=== PATIENT | female | born 1950 | race Caucasian/White ===

== ENCOUNTER 2021-02-23 14:25 | Inpatient (IN) | payer MEDICARE, SELFPAY ==
[2021-02-23] VITALS (7 sets, daily range): BP systolic 128–154; BP diastolic 59–70; PULSE 78–85; RESP 15–22; TEMP 37.8; O2SAT 92–97; BMI 28.3
--- NOTE | 2021-02-23 14:43 | XRR_ITS ---
PROCEDURE INFORMATION: Exam: XR Chest Exam date and time: 02/23/2021 2:43 PM Age: 71 years old Clinical indication: Injury or trauma; Fall; Blunt trauma (contusions or hematomas) TECHNIQUE: Imaging protocol: XR of the chest. Views: 1 view. COMPARISON: No relevant prior studies available. FINDINGS: Lungs: Left basilar atelectasis is appreciated. The lungs are otherwise clear. Pleural spaces: Unremarkable. No pleural effusion. No pneumothorax. Heart/Mediastinum: A large hiatal hernia is present Bones/joints: Unremarkable. XR/XR chest 1V portable [id number] IMPRESSION: Large hiatal hernia and left basilar atelectasis.
--- NOTE | 2021-02-23 14:43 | XRR_ITS ---
PROCEDURE INFORMATION: Exam: XR Left Hip Exam date and time: 02/23/2021 2:43 PM Age: 71 years old Clinical indication: Injury or trauma; Fall; Blunt trauma (contusions or hematomas); Left; Hip; Additional info: Pain, with pelvis TECHNIQUE: Imaging protocol: XR Left hip. Views: 2 or 3 views hip with pelvis when performed. COMPARISON: No relevant prior studies available. FINDINGS: Basicervical left femoral neck fracture is noted. Varus angulation of the distal fragment is seen at the fracture site. No hip dislocation. XR/XR hip LT 2-3V wo/w pel* [id number] IMPRESSION: Left basicervical femoral neck fracture.
--- NOTE | 2021-02-23 14:43 | ECG_ITS ---
[facility] Test Date: 2021-02-23 Pat Name: Stephanie Silveira Department: Room: Gender: Female [employer]: : 1950 Requested By: Byron Prado Order Number: [id number] Carmela MD: Hakan Goins M.D. Measurements Intervals [place] Rate: 79 P: 38 HI: 132 QRS: 29 QRSD: 86 T: 16 QT: 378 QTc: 435 Interpretive Statements SINUS RHYTHM No previous ECG available for comparison Electronically Signed On 02-24-2021 16:26:03 CDT by Hakan Goins M.D. [id number]
[2021-02-23 15:01] LABS: Basophils # 0.1 10^3/uL (0.0-0.1); Basophils % 0.7 %; Eosinophils # 0.1 10^3/uL (0.0-0.8); Eosinophils % 1.2 %; Hematocrit 42.3 % (37.0-47.0); Hemoglobin 13.9 g/dL (11.5-15.3); Lymphocytes # 2.5 10^3/uL (0.8-4.8); Lymphocytes % 32.2 %; Mean Corpuscular HGB Conc 32.9 g/dL (30.0-36.0); Mean Corpuscular Hemoglobin 30.7 pg (28.0-34.0); Mean Corpuscular Volume 93.4 fl (81-99); Mean Platelet Volume 10.6 fL (7.4-10.4); Monocytes # 0.5 10^3/uL (0.2-0.9); Monocytes % 7.1 %; Neutrophils # 4.45 10^3/uL (1.8-7.7); Neutrophils % 58.4 %; Nucleated Red Blood Cells % 0 %; Platelet Count 239 10^3/cmm (130-400); Red Blood Count 4.53 10^6/uL (4.1-5.3); Red Cell Distribution Width 13.5 % (12.1-15.1); White Blood Count 7.6 10^3/uL (4.0-10.0)
[2021-02-23 15:21] LABS: INR 0.93 (0.8-1.2)
--- NOTE | 2021-02-23 15:22 | XRR_ITS ---
PROCEDURE INFORMATION: Exam: XR Left Forearm Exam date and time: 02/23/2021 3:22 PM Age: 71 years old Clinical indication: Injury or trauma; Fall; Blunt trauma (contusions or hematomas); Arm, lower; Left TECHNIQUE: Imaging protocol: XR Left forearm. Views: 2 views. COMPARISON: No relevant prior studies available. FINDINGS: Mildly depressed radial neck fracture is noted. No joint dislocation. A small joint effusion is noted. XR/XR forearm LT 2V [id number] IMPRESSION: Radial neck fracture.
--- NOTE | 2021-02-23 15:30 | ED_ITS ---
Documented by User: TALIB Verde 02/23/21 16:32 HPI - Fall General: Chief Complaint: Fall Stated Complaint: LEFT HIP PAIN S/P FALL Time Seen by Provider: 02/23/21 14:35 History of Present Illness: HPI Narrative: Patient arrived via ambulance with complaint of left hip pain after a fall after tripping on a rug today. Was unable to move after that. Also has some left arm pain. Has no history health problems. complaint: fall Onset (ago): minute(s) Fall from: standing Fall witnessed: yes, by family Place fall occurred: home Loss of consciousness: None Prolonged down time: no Context: tripped/slipped Associated symptoms-after fall: Denies abdominal pain, chest pain or headache(s) Review of Systems Const: Denies: fever(s), chills or body aches Eyes: Denies: change in vision or blurry vision ENMT: Denies: throat pain or nasal congestion Card: Denies: chest pain or dyspnea on exertion Resp: Denies: dyspnea, productive cough or non-productive cough GI: Denies: abdominal pain, nausea or vomiting Musc: Reports: extremity pain (Left radius ulna midshaft tender), joint pain (Left hip) and limited range of motion Skin/Breast: Denies: rash Neuro: Denies: headache(s) Psych: Denies: anxiety or depression Michael/Lymph: Denies: easy bruising PFSH ED PFSH: Medical History (Updated 02/23/21 @ 21:31 by Katiuska Trevizo MD, [facility] Hiatal hernia No pertinent family history Surgical History (Updated 02/23/21 @ 16:32 by Manny Harrell MD) No pertinent past surgical history Physical Exam Const: COMMON NORMALS: no acute distress, average body habitus and patient oriented x3 HENMT: COMMON NORMALS: normocephalic HEAD & SCALP: normal to inspection and normocephalic FACE & SINUS: normal facial exam Eye: COMMON NORMALS: conjunctivae normal GENERAL EYE: appearance normal, both eyes and all related structures CONJUNCTIVA: Yes conjunctivae normal Neck/C-Spine: COMMON NORMALS: no JVD Chest: COMMONS NORMALS: normal inspection of the chest Resp: COMMON NORMALS: normal respiratory effort and clear to auscultation bilaterally AUSCULTATION: clear to auscultation bilaterally Cardio: COMMON NORMALS: no JVD, regular rate and regular rhythm RATE: regular rate RHYTHM: regular rhythm GI: COMMON NORMALS: Normal to inspection, nondistended, normoactive bowel sounds present Extremity: LEFT UPPER EXTREMITY: Yes lower arm (Tender midshaft no swelling.) LEFT LOWER EXTREMITY: Yes hip joint (Tender with and rotation foot and shortening of the leg) OTHER: Good distal pulses both extremities neurovascul ar status intact. Neuro: COMMON NORMALS: patient oriented x3 Course Vital Signs: Vital signs: Vital Signs Temperature 100.1 F H 02/23/21 19:51 Pulse Rate 85 02/23/21 19:51 Respiratory Rate 17 02/23/21 19:51 Blood Pressure 128/70 02/23/21 19:51 Pulse Oximetry 92 02/23/21 19:51 MDM - Fall MDM Narrative: Medical decision making narrative: I texted with Dr. Reyes he gladly accepts the patient informed of the femoral neck fracture and the left radial arm fracture. Lab Data: Labs: Lab Results 02/23/21 02/23/21 02/23/21 Range/Units 13:33 13:33 13:33 WBC 7.6 (4.0-10.0) 10^3/ uL RBC 4.53 (4.1-5.3) 10^6/u L Hgb 13.9 (11.5-15.3) g/dL Hct 42.3 (37.0-47.0) % MCV 93.4 (81-99) fl MCH 30.7 (28.0-34.0) pg MCHC 32.9 (30.0-36.0) g/dL RDW 13.5 (12.1-15.1) % Plt Count 239 (130-400) 10^3/c mm MPV 10.6 H (7.4-10.4) fL Neut % (Auto) 58.4 % Lymph % (Auto) 32.2 % [place] % (Auto) 7.1 % Eos % (Auto) 1.2 % Baso % (Auto) 0.7 % Neut # (Auto) 4.45 (1.8-7.7) 10^3/u L Lymph # (Auto) 2.5 (0.8-4.8) 10^3/u L [place] # (Auto) 0.5 (0.2-0.9) 10^3/u L Eos # (Auto) 0.1 (0.0-0.8) 10^3/u L Baso # (Auto) 0.1 (0.0-0.1) 10^3/u L Nucleated RBC % (a uto) 0 % Nucleated RBCs # 0.0 /100WBC PT 12.80 (12.1-14.9) SECO NDS INR 0.93 (0.8-1.2) Sodium 137 (136-145) mmol/L Potassium 3.8 (3.5-5.1) mmol/L Chloride 102 (98-107) mmol/L Carbon Dioxide 22 (22-29) mmol/L Anion Gap 16.8 (5-19) BUN 17 (8-23) mg/dL Creatinine 0.7 (0.5-0.9) mg/dL GFR Calculation Not Reportable Glucose 117 H (65-115) mg/dL Calculated Osmolal ity 287 (285-295) mOsm/k g Calcium 9.2 (8.5-10.5) mg/dL Total Bilirubin 0.2 (0.15-1.2) mg/dL AST 21 (0-32) U/L ALT 12 (0-33) U/L Alkaline Phosphata se 69 (35-105) IU/L Total Protein 7.3 (6.6-8.7) g/dL Albumin 4.3 (3.5-5.2) g/dL Globulin 3.0 (1.3-4.6) g/dL Urine Color (Yellow) Urine Appearance (CLEAR) Urine pH (5-7) Ur Specific Gravit y (1.005-1.030) Urine Protein (Negative) Urine Glucose (UA) (Normal) Urine Ketones (Negative) Urine Blood (Negative) Urine Nitrate (Negative) Urine Bilirubin (Negative) Urine Urobilinogen (Negative) mg/dL Ur Leukocyte Evelyn ase (Negative) 02/23/21 Range/Units 15:47 WBC (4.0-10.0) 10^3/ uL RBC (4.1-5.3) 10^6/u L Hgb (11.5-15.3) g/dL Hct (37.0-47.0) % MCV (81-99) fl MCH (28.0-34.0) pg MCHC (30.0-36.0) g/dL RDW (12.1-15.1) % Plt Count (130-400) 10^3/c mm MPV (7.4-10.4) fL Neut % (Auto) % Lymph % (Auto) % [place] % (Auto) % Eos % (Auto) % Baso % (Auto) % Neut # (Auto) (1.8-7.7) 10^3/u L Lymph # (Auto) (0.8-4.8) 10^3/u L [place] # (Auto) (0.2-0.9) 10^3/u L Eos # (Auto) (0.0-0.8) 10^3/u L Baso # (Auto) (0.0-0.1) 10^3/u L Nucleated RBC % (a uto) % Nucleated RBCs # /100WBC PT (12.1-14.9) SECO NDS INR (0.8-1.2) Sodium (136-145) mmol/L Potassium (3.5-5.1) mmol/L Chloride (98-107) mmol/L Carbon Dioxide (22-29) mmol/L Anion Gap (5-19) BUN (8-23) mg/dL Creatinine (0.5-0.9) mg/dL GFR Calculation Glucose (65-115) mg/dL Calculated Osmolal ity (285-295) mOsm/k g Calcium (8.5-10.5) mg/dL Total Bilirubin (0.15-1.2) mg/dL AST (0-32) U/L ALT (0-33) U/L Alkaline Phosphata se (35-105) IU/L Total Protein (6.6-8.7) g/dL Albumin (3.5-5.2) g/dL Globulin (1.3-4.6) g/dL Urine Color Yellow (Yellow) Urine Appearance Clear (CLEAR) Urine pH 5 (5-7) Ur Specific Gravit y 1.020 (1.005-1.030) Urine Protein Neg (Negative) Urine Glucose (UA) Norm (Normal) Urine Ketones 1+ H (Negative) Urine Blood Neg (Negative) Urine Nitrate Negative (Negative) Urine Bilirubin Neg (Negative) Urine Urobilinogen Norm (Negative) mg/dL Ur Leukocyte Evelyn ase Negative (Negative) Discharge Plan Discharge Patient Disposition: Admitted As Inpatient Admit Provider: Manny Harrell Clinical Impression: Fracture of femoral neck, left, Fracture of radial neck, left, closed Condition: Stable Sign Out Sign Out Data: Patient Sign Out occurred on 02/23/21 at 16:09. Patient's care was discussed, and care was transferred from to Katiuska Trevizo MD, [facility] Coding Level of Care Code ED Dress Marker for Chg Fwd Exam Comprehensive Documented by User: Katiuska Trevizo MD, ARIANNE 02/23/21 21:31 HPI - Fall General: Chief Complaint: Fall Stated Complaint: LEFT HIP PAIN S/P FALL Time Seen by Provider: 02/23/21 14:35 PFSH ED PFSH: Medical History (Updated 02/23/21 @ 21:31 by Katiuska Trevizo MD, [facility] Hiatal hernia No pertinent family history Surgical History (Updated 02/23/21 @ 16:32 by Manny Harrell MD) No pertinent past surgical history Course Vital Signs: Vital signs: Vital Signs Temperature 100.1 F H 02/23/21 19:51 Pulse Rate 85 02/23/21 19:51 Respiratory Rate 17 02/23/21 19:51 Blood Pressure 128/70 02/23/21 19:51 Pulse Oximetry 92 02/23/21 19:51 MDM - Fall MDM Narrative: Medical decision making narrative: 71-year-old female patient who had a fall today and sustained a left hip fracture. Please see the nurse practitioner's note for complete history and physical examination. Patient sustained a left hip fracture and is here to be evaluated. She is admitted to the hospital for further evaluation and management and will be taken to the OR tomorrow by the orthopedic surgeon. Medical Records: Attestation: I reviewed the patient's medical records. Lab Data: Attestation: I reviewed the patient's lab results. Labs: Lab Results 02/23/21 02/23/21 02/23/21 Range/Units 13:33 13:33 13:33 WBC 7.6 (4.0-10.0) 10^3/ uL RBC 4.53 (4.1-5.3) 10^6/u L Hgb 13.9 (11.5-15.3) g/dL Hct 42.3 (37.0-47.0) % MCV 93.4 (81-99) fl MCH 30.7 (28.0-34.0) pg MCHC 32.9 (30.0-36.0) g/dL RDW 13.5 (12.1-15.1) % Plt Count 239 (130-400) 10^3/c mm MPV 10.6 H (7.4-10.4) fL Neut % (Auto) 58.4 % Lymph % (Auto) 32.2 % [place] % (Auto) 7.1 % Eos % (Auto) 1.2 % Baso % (Auto) 0.7 % Neut # (Auto) 4.45 (1.8-7.7) 10^3/u L Lymph # (Auto) 2.5 (0.8-4.8) 10^3/u L [place] # (Auto) 0.5 (0.2-0.9) 10^3/u L Eos # (Auto) 0.1 (0.0-0.8) 10^3/u L Baso # (Auto) 0.1 (0.0-0.1) 10^3/u L Nucleated RBC % (a uto) 0 % Nucleated RBCs # 0.0 /100WBC PT 12.80 (12.1-14.9) SECO NDS INR 0.93 (0.8-1.2) Sodium 137 (136-145) mmol/L Potassium 3.8 (3.5-5.1) mmol/L Chloride 102 (98-107) mmol/L Carbon Dioxide 22 (22-29) mmol/L Anion Gap 16.8 (5-19) BUN 17 (8-23) mg/dL Creatinine 0.7 (0.5-0.9) mg/dL GFR Calculation Not Reportable Glucose 117 H (65-115) mg/dL Calculated Osmolal ity 287 (285-295) mOsm/k g Calcium 9.2 (8.5-10.5) mg/dL Total Bilirubin 0.2 (0.15-1.2) mg/dL AST 21 (0-32) U/L ALT 12 (0-33) U/L Alkaline Phosphata se 69 (35-105) IU/L Total Protein 7.3 (6.6-8.7) g/dL Albumin 4.3 (3.5-5.2) g/dL Globulin 3.0 (1.3-4.6) g/dL Urine Color (Yellow) Urine Appearance (CLEAR) Urine pH (5-7) Ur Specific Gravit y (1.005-1.030) Urine Protein (Negative) Urine Glucose (UA) (Normal) Urine Ketones (Negative) Urine Blood (Negative) Urine Nitrate (Negative) Urine Bilirubin (Negative) Urine Urobilinogen (Negative) mg/dL Ur Leukocyte Evelyn ase (Negative) 02/23/21 Range/Units 15:47 WBC (4.0-10.0) 10^3/ uL RBC (4.1-5.3) 10^6/u L Hgb (11.5-15.3) g/dL Hct (37.0-47.0) % MCV (81-99) fl MCH (28.0-34.0) pg MCHC (30.0-36.0) g/dL RDW (12.1-15.1) % Plt Count (130-400) 10^3/c mm MPV (7.4-10.4) fL Neut % (Auto) % Lymph % (Auto) % [place] % (Auto) % Eos % (Auto) % Baso % (Auto) % Neut # (Auto) (1.8-7.7) 10^3/u L Lymph # (Auto) (0.8-4.8) 10^3/u L [place] # (Auto) (0.2-0.9) 10^3/u L Eos # (Auto) (0.0-0.8) 10^3/u L Baso # (Auto) (0.0-0.1) 10^3/u L Nucleated RBC % (a uto) % Nucleated RBCs # /100WBC PT (12.1-14.9) SECO NDS INR (0.8-1.2) Sodium (136-145) mmol/L Potassium (3.5-5.1) mmol/L Chloride (98-107) mmol/L Carbon Dioxide (22-29) mmol/L Anion Gap (5-19) BUN (8-23) mg/dL Creatinine (0.5-0.9) mg/dL GFR Calculation Glucose (65-115) mg/dL Calculated Osmolal ity (285-295) mOsm/k g Calcium (8.5-10.5) mg/dL Total Bilirubin (0.15-1.2) mg/dL AST (0-32) U/L ALT (0-33) U/L Alkaline Phosphata se (35-105) IU/L Total Protein (6.6-8.7) g/dL Albumin (3.5-5.2) g/dL Globulin (1.3-4.6) g/dL Urine Color Yellow (Yellow) Urine Appearance Clear (CLEAR) Urine pH 5 (5-7) Ur Specific Gravit y 1.020 (1.005-1.030) Urine Protein Neg (Negative) Urine Glucose (UA) Norm (Normal) Urine Ketones 1+ H (Negative) Urine Blood Neg (Negative) Urine Nitrate Negative (Negative) Urine Bilirubin Neg (Negative) Urine Urobilinogen Norm (Negative) mg/dL Ur Leukocyte Evelyn ase Negative (Negative) Imaging Data^: Xray Ortho: Attestation: I personally reviewed and interpreted this imaging study as follows: Radiologist's impression: [address] [id number] ReportSigned Patient: Dominick Silveira #: [id number]: 8Acct#:[id number]/Sex: 71 / FADM Date: 02/23/21Loc: ERRoom/Bed:Attending Dr: Ordering Provider/Ordering MD: Sunil Prado , [facility] Date of Service: 02/23/21 Procedure(s): XR forearm LT 2V [id number] Accession Number(s): [id number] Report Number: [id number] PROCEDURE INFORMATION: Exam: XR Left Forearm Exam date and time: 02/23/2021 3:22 PM Age: 71 years old Clinical indication: Injury or trauma; Fall; Blunt trauma (contusions or hematomas); Arm, lower; Left TECHNIQUE: Imaging protocol: XR Left forearm. Views: 2 views. COMPARISON: No relevant prior studies available. FINDINGS: Mildly depressed radial neck fracture is noted. No joint dislocation. A small joint effusion is noted. XR/XR forearm LT 2V [id number] IMPRESSION: Radial neck fracture. Dictated By:Ortega Blas MDSigned By:Ortega Blas MDSigned Date/Time:02/23/21 1558DD/ [address] [id number] ReportSigned Patient: Dominick Silveira #: [id number]: [id number]#:[id number] Age/Sex: 71 / FADM Date: 02/23/21Loc: ERRoom/Bed:Attending Dr: Ordering Provider/Ordering MD: Sunil Prado Sr, [facility] Date of Service: 02/23/21 Procedure(s): XR hip LT 2-3V wo/w pel* [id number] Accession Number(s): [id number] Report Number: [id number] PROCEDURE INFORMATION: Exam: XR Left Hip Exam date and time: 02/23/2021 2:43 PM Age: 71 years old Clinical indication: Injury or trauma; Fall; Blunt trauma (contusions or hematomas); Left; Hip; Additional info: Pain, with pelvis TECHNIQUE: Imaging protocol: XR Left hip. Views: 2 or 3 views hip with pelvis when performed. COMPARISON: No relevant prior studies available. FINDINGS: Basicervical left femoral neck fracture is noted. Varus angulation of the distal fragment is seen at the fracture site. No hip dislocation. XR/XR hip LT 2-3V wo/w pel* [id number] IMPRESSION: Left basicervical femoral neck fracture. Dictated By:Ortega Blas MDSigned By:Ortega Blas MDSigned Date/Time:02/23/21 1555DD/ 1554 CXR: Attestation: I personally reviewed and interpreted this imaging study as follows: Radiologist's impression: [id number] [facility], [place] [address]PMrp ReportSigned Patient: Dominick Silveira #: [id number]: [id number]#:[id number]/Sex: 71 / FADM Date: 02/23/21Loc: ERRoom/Bed:A ttending Dr: Ordering Provider/Ordering MD: Sunil Prado Sr, [facility] Date of Service: 02/23/21 Procedure(s): XR chest 1V portable [id number] Accession Number(s): [id number] Report Number: [id number] PROCEDURE INFORMATION: Exam: XR Chest Exam date and time: 02/23/2021 2:43 PM Age: 71 years old Clinical indication: Injury or trauma; Fall; Blunt trauma (contusions or hematomas) TECHNIQUE: Imaging protocol: XR of the chest. Views: 1 view. COMPARISON: No relevant prior studies available. FINDINGS: Lungs: Left basilar atelectasis is appreciated. The lungs are otherwise clear. Pleural spaces: Unremarkable. No pleural effusion. No pneumothorax. Heart/Mediastinum: A large hiatal hernia is present Bones/joints: Unremarkable. XR/XR chest 1V portable [id number] IMPRESSION: Large hiatal hernia and left basilar atelectasis. Dictated By:Ortega Blas MDSigned By:Ortega Blas MDSigned Date/Time:02/23/21 1556DD/ 1554 Discharge Plan Discharge Patient Disposition: Admitted As Inpatient Admit Provider: Manny Harrell Clinical Impression: Fracture of femoral neck, left, Fracture of radial neck, left, closed Condition: Stable Sign Out Sign Out Data: Patient Sign Out occurred on 02/23/21 at 16:09. Patient's care was discussed, and care was transferred from to Katiuska Trevizo MD, [facility] Coding Level of Care Code ED Dress Marker for Chg Fwd Exam Comprehensive
[2021-02-23 15:31] LABS: Alanine Aminotransferase 12 U/L (0-33); Albumin Level 4.3 g/dL (3.5-5.2); Alkaline Phosphatase 69 IU/L (35-105); Anion Gap 16.8 (5-19); Aspartate Amino Transferase 21 U/L (0-32); Blood Urea Nitrogen 17 mg/dL (8-23); Calcium 9.2 mg/dL (8.5-10.5); Carbon Dioxide 22 mmol/L (22-29); Chloride 102 mmol/L (98-107); Glucose 117 mg/dL (65-115); Osmolality Calculated 287 mOsm/kg (285-295); Potassium 3.8 mmol/L (3.5-5.1); Sodium 137 mmol/L (136-145); Total Bilirubin 0.2 mg/dL (0.15-1.2); Total Protein 7.3 g/dL (6.6-8.7)
[2021-02-23] MEDS: morphine 4 mg/mL SDV 1 mL IVP (15:34)
[2021-02-23] MEDS: sodium chloride 0.9% 500 ML IV (15:35)
[2021-02-23] MEDS: ondansetron 2 mg/ML SDV 2 mL 4 MG IVP (15:35)
[2021-02-23 16:09] LABS: Add Urine Microscopic? NO; Charge for UA Resulting for Rev
[2021-02-23 16:18] LABS: Urine Color Yellow (Yellow)
[2021-02-23 16:19] LABS: Bilirubin Urine Neg (Negative); Blood Urine Neg (Negative); Glucose Urine UA Norm (Normal); Ketones Urine 1+ (Negative); Leukocyte Esterase Urine Negative (Negative); Nitrate Urine Negative (Negative); Protein Urine Neg (Negative); Urine Appearance Clear (CLEAR); Urobilinogen Urine Norm (Negative); pH Urine 5 (5-7)
--- NOTE | 2021-02-23 16:23 | P.HP_ITS ---
Providers/Chief Complaint Chief Complaint: LEFT HIP PAIN S/P FALL History of Present Illness 71-year-old female with no significant past medical history presented to the hospital after she fell. Apparently patient had tripped over a rug. No symptoms prior to fall.Upon arrival to emergency room patients laboratory workup showed a WBC of 7.6, hemoglobin of 13.9, hematocrit 42.3 and platelet count of 239. INR of 0.93. Sodium 137, potassium 3.8, chloride 102, bicarb 22, BUN 17 and creatinine of 0.7. LFTs were within normal limits. Glucose 117. Urinalysis did not show any evidence of acute infection.Imaging studies included a large hiatal hernia with left basilar atelectasis.Hip x-ray showed evidence of left basicervical neck fracture. LT forearm xray showed left radial neck fr acture. Orthopedic surgery was consulted. Medicine was asked to complete H&P. Review of Systems General: Reports: 10 or more systems reviewed and unremarkable except in HPI and below Medications/Allergies Home Medications Medication Instructions Recorded Confirmed Last Taken Type xfbxo-b-fsdzllvkhdddf [Beano] 150 unit PO TIDWM 02/23/21 02/23/21 02/22/21 History aspirin 81 mg PO DAILY 02/23/21 02/23/21 02/22/21 History calcium 100 mg PO DAILY 02/23/21 02/23/21 02/22/21 History cholecalciferol (vitamin D3) 25 mcg PO DAILY 02/23/21 02/23/21 02/22/21 History [Vitamin D3] cyanocobalamin (vitamin B-12) 1,000 mcg PO DAILY 02/23/21 02/23/21 02/22/21 History [Vitamin B-12] flaxseed 1,000 mg PO DAILY 02/23/21 02/23/21 02/22/21 History lactase 4,500 unit PO TIDWM 02/23/21 02/23/21 02/22/21 History Allergies Allergy/AdvReac Type Severity Reaction Status Date / Time No Known Allergies Allergy Unverified 02/23/21 16:43 PFSH Acute PFSH: Medical History (Updated 02/23/21 @ 16:33 by Manny Harrell MD) Hiatal hernia No pertinent family history Surgical History (Updated 02/23/21 @ 16:32 by Manny Harrell MD) No pertinent past surgical history Vitals/I&O/Wt Last Vital Signs Pulse 78 02/23/21 14:41 Resp 16 02/23/21 15:34 BP 154/66 02/23/21 14:41 Pulse Ox 95 02/23/21 14:41 Weight last 48 hrs Weight 76.204 kg Physical Exam Narrative: EXAM NARRATIVE: General-alert awake and oriented x3 no apparent distress HEENT grossly unremarkable CVS -regular rate rhythm Chest -nonlabored respiration Abdomen-soft nontender nondistended Extremities- decreased mobility due to pain in left upper and lower extremity. Urinary Catheter Management^: Stewart: Cath Placed During This Visit: yes Urinary Catheter Date of Insertion: 02/23/21 Urinary Catheter Time of Insertion: 15:49 Data : 02/23/21 13:33 02/23/21 13:33 A&P Assessment and plan (1) Fracture of femoral neck, left: Status: Acute (2) Fracture of radial neck, left, closed: Status: Acute Additional A&P Information Mechanical Fall with Left femoral / Radial neck fracture Labs stable Pain control Further plan per orthopedic surgery Large Hiatal Hernia Protonix 40 mg PO daily DVT ppx Per orthopedic surgery Attestations Medical Necessity Statement*: Require a 2 midnight stayIn hospital for evaluation treatment ofMechanical fall with subsequent femoral neck and radial neck fracture. Time Spent in Patient Care: Greater than 35 minutes (>than 50% of time spent in counselling and/or direct pt care on unit) . Coding Level of Care Code Acute Court Bailiff for Jair Fwd Diagnoses Fracture of femoral neck, left S72.002A Fracture of radial neck, left, closed S52.132A
[2021-02-23] MEDS: morphine 4 mg/mL SDV 1 mL 2 MG IVP ×2 (18:12→22:58)
[2021-02-24] VITALS (25 sets, daily range): BP systolic 104–144; BP diastolic 57–75; PULSE 73–107; RESP 16–26; TEMP 36.4–38.6; O2SAT 91–96
--- NOTE | 2021-02-24 | XR_ITS ---
WS: [id number] C-ARM RADIOGRAPHS LEFT HIP; 5 IMAGES HISTORY: SHADE PICS COMPARISON: None available. Intraoperative screw fixation and long intramedullary femoral lance placement. LEFT hip fracture in goo d position alignment. XR/XR hip LT 1V wo/w pel [id number] IMPRESSION: Intraoperative fixation LEFT hip fracture now in good position.
--- NOTE | 2021-02-24 | SCC_ITS ---
Procedure Done: Open reduction internal fixation left hip with intramedullary device 68.9 seconds of fluoroscopic guidance, for a cumulative dose of 4.60 mGy, was provided to Dr. Reyes by the radiology department. C-arm images of the LEFT hip were saved for the patient's permanent record. [facility]
[2021-02-24] MEDS: lanolin oint 7 gm 1 APPLIC TOPICAL (01:26)
[2021-02-24] MEDS: morphine 4 mg/mL SDV 1 mL 2 MG IVP (03:38)
[2021-02-24] MEDS: sodium chloride 0.9% 1,000 ML 30 ML IV (05:59)
[2021-02-24 07:44] LABS: Basophils % 0.2 %; Eosinophils % 0.4 %; Hemoglobin 12.3 g/dL (11.5-15.3); Lymphocytes # 1.3 10^3/uL (0.8-4.8); Lymphocytes % 15.4 %; Mean Corpuscular HGB Conc 32.4 g/dL (30.0-36.0); Mean Corpuscular Hemoglobin 30.3 pg (28.0-34.0); Mean Corpuscular Volume 93.6 fl (81-99); Mean Platelet Volume 10.4 fL (7.4-10.4); Monocytes # 0.8 10^3/uL (0.2-0.9); Neutrophils # 5.99 10^3/uL (1.8-7.7); Neutrophils % 73.6 %; Nucleated Red Blood Cells % 0 %; Platelet Count 170 10^3/cmm (130-400); Red Blood Count 4.06 10^6/uL (4.1-5.3); Red Cell Distribution Width 13.4 % (12.1-15.1); White Blood Count 8.1 10^3/uL (4.0-10.0)
--- NOTE | 2021-02-24 08:00 | PC.NURSE ---
patient in preop
--- NOTE | 2021-02-24 08:02 | ANES.PREANE2 ---
Pre-Anesthetic Assessment Pre-Anesthetic Assessment: Height/Weight: Height 1.64 m Weight 76.204 kg Temp Pulse Resp BP Pulse Ox 101.5 F H 90 18 143/67 94 02/24/21 07:49 02/24/21 07:49 02/24/21 07:49 02/24/21 07:49 02/24/21 07:49 Proposed Procedure: Operation Date: 02/24/21 06:55 Proposed Procedures p Trochanteric Femoral Nail(Left) - Pancho Reyes MD Was Beta Catrina taken within 24 hours: N/A Was Clonidine taken within 24 hours: N/A Last intake: Intake Last Liquid Date 02/23/21 Last Liquid Time 23:59 Last Solid Date 02/23/21 Last Solid Time 11:30 Social: Social History: No alcohol and No tobacco Exam: Pre-Anes Outpt Exam: alert, oriented x 3, clear to auscultation bilaterally and regular rate & rhythm Airway: Submandibular: WNL Cervical ROM: WNL MP: 2 Dentition: Full History/ROS: No significant history except as noted Musc/skel: Musc/skel: OA/DJD Anesthetic Plan: ASA status: 2 Anesthesia: Regional (specify below) (SAB) Risk of > 500 ml blood loss (7ml/kg in children): Yes, adequate IV access and fluids planned Meds/Allergies Current Medications: Current Medications Generic Name Dose Route Start Last Admin Trade Name Freq PRN Reason Stop Dose Admin Sodium Chloride 1,000 mls @ 30 ml s/hr 02/24/21 05:15 02/24/21 05:59 Sodium Chloride 0.9% IV 30 mls/hr .Q24H NIK Administration Lanolin 1 applic 02/24/21 00:49 02/24/21 01:26 Lanolin Oint 7 G m TOPICAL 1 applic PRN PRN Administration DRYNESS Morphine Sulfate 2 mg 02/23/21 16:21 02/24/21 03:38 Morphine 4 Mg/Ml Sdv 1 Ml IVP 2 mg Q4H PRN Administration SEVERE PAIN PFSH Anesthesia PFSH: Medical History (Updated 02/23/21 @ 21:31 [place] Katiuska Tre[place]izo [place] [facility] [place] [facility] [place] Hiatal her[place] No pertinent family history Surgical History (Updated 02/23/21 @ 16:32 by Manny Harrell MD) No pertinent past surgical history Data Anesthesia CBC & Chem 7: 02/24/21 06:35 02/23/21 13:33 Other Labs: Laboratory Results - last 48 hr 02/23/21 02/23/21 02/23/21 13:33 13:33 13:33 WBC 7.6 RBC 4.53 Hgb 13.9 Hct 42.3 MCV 93.4 MCH 30.7 MCHC 32.9 RDW 13.5 Plt Count 239 MPV 10.6 H Neut % (Auto) 58.4 Lymph % (Auto) 32.2 Desha % (Auto) 7.1 Eos % (Auto) 1.2 Baso % (Auto) 0.7 Neut # (Auto) 4.45 Lymph # (Auto) 2.5 Desha # (Auto) 0.5 Eos # (Auto) 0.1 Baso # (Auto) 0.1 Nucleated RBC % (auto) 0 Nucleated RBCs # 0.0 PT 12.80 INR 0.93 Sodium 137 Potassium 3.8 Chloride 102 Carbon Dioxide 22 Anion Gap 16.8 BUN 17 Creatinine 0.7 GFR Calculation Not Reportable Glucose 117 H Calculated Osmolality 287 Calcium 9.2 Total Bilirubin 0.2 AST 21 ALT 12 Alkaline Phosphatase 69 Total Protein 7.3 Albumin 4.3 Globulin 3.0 Urine Color Urine Appearance Urine pH Ur Specific [place] Urine Protein Urine Glucose (UA) Urine Ketones Urine Blood Urine Nitrate Urine Bilirubin Urine Urobilinogen Ur Leukocyte Esterase 02/23/21 02/24/21 15:47 06:35 WBC 8.1 RBC 4.06 L Hgb 12.3 Hct 38.0 MCV 93.6 MCH 30.3 MCHC 32.4 RDW 13.4 Plt Count 170 MPV 10.4 Neut % (Auto) 73.6 Lymph % (Auto) 15.4 Desha % (Auto) 10.0 Eos % (Auto) 0.4 Baso % (Auto) 0.2 Neut # (Auto) 5.99 Lymph # (Auto) 1.3 Desha # (Auto) 0.8 Eos # (Auto) 0.0 Baso # (Auto) 0.0 Nucleated RBC % (auto) 0 Nucleated RBCs # 0.0 PT INR Sodium Potassium Chloride Carbon Dioxide Anion Gap BUN Creatinine GFR Calculation Glucose Calculated Osmolality Calcium Total Bilirubin AST ALT Alkaline Phosphatase Total Protein Albumin Globulin Urine Color Yellow Urine Appearance Clear Urine pH 5 Ur Specific [place] 1.020 Urine Protein Neg Urine Glucose (UA) Norm Urine Ketones 1+ H Urine Blood Neg Urine Nitrate Negative Urine Bilirubin Neg Urine Urobilinogen Norm Ur Leukocyte Esterase Negative Cardiac Studies: No Data to Display
[2021-02-24 08:12] LABS: Alanine Aminotransferase 10 U/L (0-33); Albumin Level 3.8 g/dL (3.5-5.2); Alkaline Phosphatase 63 IU/L (35-105); Anion Gap 14.3 (5-19); Aspartate Amino Transferase 15 U/L (0-32); Blood Urea Nitrogen 12 mg/dL (8-23); Calcium 9.1 mg/dL (8.5-10.5); Carbon Dioxide 23 mmol/L (22-29); Chloride 103 mmol/L (98-107); Globulin 2.7 g/dL (1.3-4.6); Glucose 102 mg/dL (65-115); Osmolality Calculated 282 mOsm/kg (285-295); Potassium 4.3 mmol/L (3.5-5.1); Sodium 136 mmol/L (136-145); Total Bilirubin 0.8 mg/dL (0.15-1.2); Total Protein 6.5 g/dL (6.6-8.7)
--- NOTE | 2021-02-24 08:15 | PM.CONSULT ---
Providers/Reason For Consult Consulting Physician/Specialty*: Pancho Reyes MD; orthopedic surgery Reason for Consult*: Basicervical left femoral neck fracture, left radial head fracture Attending Physician: Manny Harrell History of Present Illness History of Present Illness Stephanie Silveira is a 71 year old female who fell at home yesterday when she is running to the door to greet friends. She described immediate pain in her left hip more so than her left elbow. She was transferred by EMS to our emergency room where radiographs revealed a basicervical fracture of the left femoral neck and left radial head fracture. She is admitted for management of that fracture. She denies any previous hip or elbow pain. She uses no ambulatory aids. She lives at home with her . Meds/Allergies Home Medications and Allergies Home Medications Medication Instructions Recorded Confirmed Last Taken Type [id number] [Beano] 150 unit PO TIDWM 02/23/21 02/23/21 02/22/21 History aspirin 81 mg PO DAILY 02/23/21 02/23/21 02/22/21 History calcium 100 mg PO DAILY 02/23/21 02/23/21 02/22/21 History cholecalciferol (vitamin D3) 25 mcg PO DAILY 02/23/21 02/23/21 02/22/21 History [Vitamin D3] cyanocobalamin (vitamin B-12) 1,000 mcg PO DAILY 02/23/21 02/23/21 02/22/21 History [Vitamin B-12] flaxseed 1,000 mg PO DAILY 02/23/21 02/23/21 02/22/21 History lactase 4,500 unit PO TIDWM 02/23/21 02/23/21 02/22/21 History Allergies Allergy/AdvReac Type Severity Reaction Status Date / Time No Known Allergies Allergy Unverified 02/23/21 16:43 Current Medications Current Medications Generic Name Dose Route Start Last Admin Trade Name Freq PRN Reason Stop Dose Admin Sodium Chloride 1,000 mls @ 30 mls/hr 02/24/21 05:15 02/24/21 05:59 Sodium Chloride 0.9% IV 30 mls/hr .Q24H NIK Administration Lanolin 1 applic 02/24/21 00:49 02/24/21 01:26 Lanolin Oint 7 Gm TOPICAL 1 applic PRN PRN Administration DRYNESS Morphine Sulfate 2 mg 02/23/21 16:21 02/24/21 03:38 Morphine 4 Mg/Ml Sdv 1 Ml IVP 2 mg Q4H PRN Administration SEVERE PAIN PFSH Acute PFSH: Medical History (Updated 02/24/21 @ 08:20 by Pancho Reyes MD) Hiatal hernia No pertinent family history Surgical History (Updated 02/23/21 @ 16:32 by Manny Harrell MD) No pertinent past surgical history Vitals/I&O/Wt Last Vital Signs Temp 101.5 F H 02/24/21 07:49 Pulse 90 02/24/21 07:49 Resp 18 02/24/21 07:49 BP 143/67 02/24/21 07:49 Pulse Ox 94 02/24/21 07:49 02/23/21 02/24/21 02/24/21 22:59 06:59 14:59 Intake Total 500 / 500 Output Total 1200 / 1200 Balance 500 / 500 -1200 / -700 Weight last 48 hrs Weight 168 lb Weight 168 lb Physical Exam Narrative: EXAM NARRATIVE: Violet is a pleasant female in no apparent distress. She is alert and oriented answers questions appropriately. There is shortening and external rotation of the left hip and exquisite pain with motion of the left hip. She will flex extend her left toes. Sensation is intact in the left foot. Palpable left dorsalis pedis pulse. There is slight swelling about her left elbow. She lacks 15 degrees short of full extension and can flex to 130 degrees. She is tender about her radial head. She will flex and extend her ulnar 4 fingers as well as extend and oppose and abduct her left thumb. Sensation is intact to light touch. Strong radial pulse. Urinary Catheter Management^: Stewart: Cath Placed During This Visit: yes Reason for Continuing Indwelling Catheter: Perioperative Use in Selected Surgeries Urinary Catheter Date of Insertion: 02/23/21 Urinary Catheter Time of Insertion: 15:49 Data Imaging^: Xray Ortho: My impression: Radiographs of the left hip reviewed from yesterday. The patient appears to have a basicervical fracture of the left femoral neck. Radiographs of the forearm are obtained showing a nondisplaced fracture of the left radial neck A&P Assessment and plan (1) Basicervical fracture of neck of left femur: Noy has a displaced basicervical fracture of the left femoral neck. I discussed treatment options. To minimize pain and allow mobilization I have suggested stabilization. I think with her generalized osteopenia the best option would be a intramedullary device. I discussed options with the patient.. I told the patient we could treat this nonoperatively but certainly they would be at risk for medical problems without surgery. Theywould have problems with pain that would require narcotics for pain control. They would require a long period of bedrest event specialist food demonstrator risk for pneumonia and skin breakdown. I discussed surgical intervention with the patient. I told them with open reduction internal fixation they should be able to be mobilized and resume ambulatory status. We can eliminate the problems associated with prolonged bed rest and would have better control of pain. Certainly there would be inherent risk with surgery. These would would include the risk of cardiac complications, stroke, infection, and even . I discussed risk of any orthopedic implant including nonunion, malunion, a component failure. I discussed the possible need for component removal. I discussed risk of deep venous thromboses and pulmonary emboli that are present with any treatment and the importance of DVT prophylaxis. The patient expressed good understanding of alternative treatments, seem to comprehend, and agrees to surgical intervention. Status: Acute (2) Fracture of radial neck, left, closed: The patient does not have a great deal of pain with her radial neck fracture. I do not think she will require immobilization. We will attempt to allow her to ambulate with a platform walker on the left. I told her to anticipate good function with the left elbow. I warned her is not uncommon to lose some range of motion. Status: Acute Qualifiers: Encounter type: initial encounter Fracture alignment: nondisplaced Qualified Code(s): S52.135A - Nondisplaced fracture of neck of left radius, initial encounter for closed fracture Coding Level of Care Code Acute Internet Site Designer for [facility] Diagnoses Basicervical fracture of neck of left femur S72.042A Fracture of radial neck, left, closed S52.135A Encounter type: initial encounter Fracture alignment: nondisplaced
--- NOTE | 2021-02-24 09:39 | PM.OP ---
Operative Report Date of procedure: February 24, 2021 Pre-op Diagnosis: Left basicervical femoral neck fracture Post-op diagnosis: same Post-op Findings: Same Procedure Done: Open reduction internal fixation left hip with intramedullary device Implants: Dodge Gamma nail [id number], 95mm lag screw Pathology: none sent Anesthesia: Nerve Block (Spinal) Estimated blood loss (mL): 50 Complications: None Findings: The patient had a displaced basicervical left femoral neck fracture Condition: stable Disposition: PACU Procedure: The patient was taken to the operating room. They were given 1 g of Ancef. They were positioned on the fracture table with the right lower extremity in gentle traction. A timeout was performed. A 2 cm long incision was made proximal to the greater trochanter scalpel blade. Dissection was carried down to tip the greater trochanter. A guidepin was passed manually from the tip of the trochanter down the shaft. The proximal reamer was utilized to open up the proximal canal. An 11 mm by 360 mm Dodge gamma nail was passed down the canal without difficulty. Under visualization of fluoroscopy a guidepin was driven up into the head and neck at 125? angle. It was measured at 95 mm in length and a lag screw similar length was then placed and locked into place with the proximal locking screw. The compression assembly was used to apply additional compression across the fracture. Intraoperative imaging was obtained verifying satisfactory position of the hardware and reduction of the fracture. Deep tissues were closed with 0 and 2-0 Vicryl. Subcutaneous tissues were closed with a running 4-0 Monocryl. The skin was closed with skin kevon. Sterile dressings were applied. The patient was extubated and taken to recovery room in stable condition.
[2021-02-24] MEDS: meperidine 50 mg/mL INJ 12.5 MG IVP (09:47)
--- NOTE | 2021-02-24 10:15 | PC.NURSE ---
Rcvd report from Kell in PACU
--- NOTE | 2021-02-24 10:32 | SUR.PHASEI ---
0947 PT AWAKE AND ALERT TALKATIVE C/O OF PAIN TO LT HIP (DULL PAIN) PT SHIVERING UNCONTOLLED WARM BLANKETS TO PT SEE MED GIVEN FOR PAIN AND SHIVERING PT LT HIP D/I DISTAL LT FOOT PINK WARM WITH STRONG REGULAR PULSE AT MARKED SITE. FIRST ICE TO LT HIP ORDERED.
--- NOTE | 2021-02-24 10:53 | ANE.PACU2 ---
Inpatient post-anesthesia follow up: Airway intact: Yes Vital signs: Temperature 98.2 F Pulse Rate [Monito r] 78 Pulse Rate 76 Respiratory Rate 22 Blood Pressure [Ri ght Arm] 154/66 Blood Pressure 109/57 Pulse Oximetry 93 Oxygen Delivery Me thod Nasal Cannula Oxygen Flow Rate 3 Fraction of Inspir ed Oxygen Hydration adequate: Yes Nausea and vomiting: No Pain level: 2 Mental status: Baseline
[2021-02-24] MEDS: HYDROcodone-acetaminophen 5-325 mg Tablet 1 TAB PO ×2 (11:17→18:30)
[2021-02-24] MEDS: sodium chloride 0.9% 1,000 ML 100 ML IV ×2 (11:18→20:44)
[2021-02-24] MEDS: chlorhexidine gluconate 0.12% Btl 473 mL 30 ML MUCOUS MEM ×3 (14:15→20:45)
--- NOTE | 2021-02-24 15:14 | PC.OT ---
Patient declined to participate in OT evaluation this date and requested to do it on a later date due to hip surgery earlier this date and painful left elbow. Patient's spouse present bedside. Nursing notified.
--- NOTE | 2021-02-24 16:17 | PC.NURSE ---
patient put on RA by RT. ashly's came to check writer and said patient's oxygen is dropping. check writer and RT went in room and checked patient's oxygen's saturation and it is 92-94%
--- NOTE | 2021-02-24 17:48 | PM.PN ---
Subjective Subjective: Interval history: no new clinical events. stable post op Medications: Reviewed: Yes Vitals/I&O/Wt Last Vital Signs Temp 98.6 F 02/24/21 15:25 Pulse 86 02/24/21 16:08 Resp 17 02/24/21 16:08 BP 128/75 02/24/21 15:25 Pulse Ox 96 02/24/21 16:08 02/24/21 02/24/21 02/24/21 06:59 14:59 22:59 Intake Total 550 / 550 Output Total 1200 / 1200 250 / 250 Balance -1200 / -700 300 / 300 Weight last 48 hrs Weight 76.204 kg Weight 76.204 kg Physical Exam Narrative: EXAM NARRATIVE: General-alert awake and oriented x3 no apparent distress HEENT grossly unremarkable CVS -regular rate rhythm Chest -nonlabored respiration Abdomen-soft nontender nondistended Extremities- d Urinary Catheter Management^: Stewart: Cath Placed During This Visit: yes Reason for Continuing Indwelling Catheter: Perioperative Use in Selected Surgeries Urinary Catheter Date of Insertion: 02/23/21 Urinary Catheter Time of Insertion: 15:49 Data : 02/24/21 06:35 02/24/21 06:35 A&P Assessment and plan (1) Fracture of femoral neck, left: Status: Deleted Qualifiers: Encounter type: initial encounter Fracture type: closed Qualified Code(s): S72.002A - Fracture of unspecified part of neck of left femur, initial encounter for closed fracture (2) Fracture of radial neck, left, closed: Status: Acute Qualifiers: Encounter type: initial encounter Fracture alignment: nondisplaced Qualified Code(s): S52.135A - Nondisplaced fracture of neck of left radius, initial encounter for closed fracture Additional A&P Information Mechanical Fall with Left femoral / Radial neck fracture stable post op Large Hiatal Hernia Protonix 40 mg PO daily DVT ppx Per orthopedic surgery Attestations Medical Necessity Statement*: Continue hosptialzation for management of post op care. Time Spent in Patient Care: Greater than 35 minutes (>than 50% of time spent in counselling and/or direct pt care on unit). Coding Level of Care Code Acute Coronary Clinical Specialist for [facility] Diagnoses Fracture of femoral neck, left S72.002A Encounter type: initial encounter Fracture type: closed Fracture of radial neck, left, closed S52.135A Encounter type: initial encounter Fracture alignment: nondisplaced
--- NOTE | 2021-02-24 18:29 | PC.NURSE ---
notified Dr Harrell that patient's temp is 101.4.
[2021-02-24] MEDS: sennosides-docusate Tablet 2 TAB PO (18:30)
[2021-02-24] MEDS: mupirocin oint 22 gm 1 APPLIC NASAL (18:33)
[2021-02-25] VITALS (7 sets, daily range): BP systolic 113–128; BP diastolic 66–80; PULSE 88–97; RESP 17–18; TEMP 36.9–37.7; O2SAT 91–99
[2021-02-25] MEDS: HYDROcodone-acetaminophen 5-325 mg Tablet 1 TAB PO ×6 (00:36→22:29)
[2021-02-25 02:23] LABS: Basophils % 0.3 %; Eosinophils # 0.2 10^3/uL (0.0-0.8); Eosinophils % 2.1 %; Hematocrit 31.5 % (37.0-47.0); Hemoglobin 10.3 g/dL (11.5-15.3); Lymphocytes # 0.9 10^3/uL (0.8-4.8); Lymphocytes % 10.7 %; Mean Corpuscular HGB Conc 32.7 g/dL (30.0-36.0); Mean Corpuscular Hemoglobin 30.6 pg (28.0-34.0); Mean Corpuscular Volume 93.5 fl (81-99); Mean Platelet Volume 10.1 fL (7.4-10.4); Monocytes # 0.7 10^3/uL (0.2-0.9); Monocytes % 8.5 %; Neutrophils # 6.77 10^3/uL (1.8-7.7); Neutrophils % 77.9 %; Nucleated Red Blood Cells % 0 %; Platelet Count 123 10^3/cmm (130-400); Red Blood Count 3.37 10^6/uL (4.1-5.3); Red Cell Distribution Width 13.3 % (12.1-15.1); White Blood Count 8.7 10^3/uL (4.0-10.0)
[2021-02-25 03:11] LABS: Blood Urea Nitrogen 8 mg/dL (8-23); Calcium 8.3 mg/dL (8.5-10.5); Carbon Dioxide 22 mmol/L (22-29); Chloride 104 mmol/L (98-107); Glucose 116 mg/dL (65-115); Osmolality Calculated 279 mOsm/kg (285-295); Sodium 135 mmol/L (136-145)
[2021-02-25] MEDS: sodium chloride 0.9% 1,000 ML 100 ML IV ×2 (06:55→18:15)
[2021-02-25] MEDS: chlorhexidine gluconate 0.12% Btl 473 mL 30 ML MUCOUS MEM ×4 (09:37→20:00)
[2021-02-25] MEDS: sennosides-docusate Tablet 2 TAB PO ×2 (09:38→18:10)
[2021-02-25] MEDS: mupirocin oint 22 gm 1 APPLIC NASAL ×2 (09:38→18:09)
--- NOTE | 2021-02-25 09:57 | PC.CHAP ---
Pastoral Care Encounter/Spiritual Assessment Type of Contact [] Declined production utility worker visit [] Patient/Family/Request visit [] Outpatient visit [] Follow-up visit [] Physician referral [] Code/Alert [x] Routine visit [] Staff referral [] Actively dying [x] Patient sleeping [] Family support [] [] Out of room [] Palliative care [] [] Receiving care in room [] Pre-surgical visit [] Trauma [] Long length of stay [] ICU visit [] Other: Relational/Emotional Strength [] Patient feels connected with others/family/visitors/staff [] Distress [] Loneliness/isolation [] Abandonment Spirituality of Patient [] Person of Miryam [] Attends Mormonism of their Miryam [] Believes in Prayer [] Reads Bible or Buddhism materials [] There are Spiritual issues to be addressed Kick Press Setter Interventions [] Prayer [] Active listening [] Non-anxious presence [] Spiritual/emotional support [] Crisis/trauma care [] Spiritual counseling [] Bereavement support [] Provided bereavement packet [] Provided Bible/devotional materials [] Provided toy/stuffed animal, coloring book to patient or family member [] Provided Communion [] Anointing/Jennings [] Salvation [] Completed spiritual assessment [] Other: Impact on Illness or Injury [] Angry [] Fearful [] Anxious [] Often cries [] Exhaustion [] Unable to work [] Unable to attend jehovah's witness [] Unable to walk/stand [] Unable to read [] Unable to drive [] Unable to eat/drink [] Unable to sleep [] Unable to be with family [] Patient intubated [] Other: Summary Time spent with patient
[2021-02-25] MEDS: enoxaparin 40 mg/0.4 mL Syringe SUBCUT (11:03)
--- NOTE | 2021-02-25 12:31 | P.PN_ITS ---
Subjective Subjective: Interval history: Complains of pain and muscle spasms left thigh. Still some pain left elbow Vitals/I&O/Wt Last Vital Signs Temp 98.7 F 02/25/21 08:00 Pulse 94 02/25/21 09:15 Resp 17 02/25/21 09:15 BP 126/80 02/25/21 08:00 Pulse Ox 99 02/25/21 09:15 02/24/21 02/25/21 02/25/21 22:59 06:59 14:59 Intake Total 1243.333 / 4682.807 5830 / 2853.333 60 / 60 Output Total 325 / 575 700 / 1275 Balance 918.333 / 1218.333 360 / 1578.333 60 / 60 Weight last 48 hrs Weight 168 lb Weight 168 lb Physical Exam Narrative: EXAM NARRATIVE: Expected swelling left thigh. Pain with internal and external rotation left thigh. Pain with extremes of motion left elbow. Lacks approximately 15 degrees short of full extension Urinary Catheter Management^: Stewart: Cath Placed During This Visit: yes, but has since been removed by the nurse Reason for Continuing Indwelling Catheter: Perioperative Use in Selected Surgeri es Urinary Catheter Date of Insertion: 02/23/21 Urinary Catheter Time of Insertion: 15:49 Date Urinary Catheter Removed: 02/25/21 Time Urinary Catheter Discontinued: 06:54 Data : 02/25/21 02:14 02/25/21 02:14 A&P Assessment and plan (1) Basicervical fracture of neck of left femur: Status: Acute (2) Fracture of radial neck, left, closed: Status: Acute Qualifiers: Encounter type: initial encounter Fracture alignment: nondisplaced Qualified Code(s): S52.135A - Nondisplaced fracture of neck of left radius, i nitial encounter for closed fracture (3) Postoperative state: Continue to mobilize with therapy. Progress thus far slow. May need senior living transfer. Will add muscle relaxer for spasm. Status: Acute Attestations Medical Necessity Statement*: Slow progress with therapy. If not doing better tomorrow will proceed with senior living transfer plans. Coding Level of Care Code Acute Ash Handler for [facility] Diagnoses Basicervical fracture of neck of left femur S72.042A Fracture of radial neck, left, closed S52.135A Encounter type: initial encounter Fracture alignment: nondisplaced Postoperative state Z98.890
[2021-02-25] MEDS: cyclobenzaprine 10 mg Tablet PO ×2 (13:42→22:29)
--- NOTE | 2021-02-25 20:13 | PM.PN ---
Subjective Subjective: Interval history: stable overnight Medications: Reviewed: Yes Vitals/I&O/Wt Last Vital Signs Temp 99.9 F H 02/25/21 20:00 Pulse 97 02/25/21 20:00 Resp 18 02/25/21 20:00 BP 113/68 02/25/21 20:00 Pulse Ox 91 02/25/21 20:00 02/25/21 02/25/21 02/25/21 06:59 14:59 22:59 Intake Total 1060 / 2853.333 60 1240 / 1300 Output Total 700 / 1275 Balance 360 / 1578.333 60 60 1240 / 1300 Physical Exam Narrative: EXAM NARRATIVE: General-alert awake and oriented x3 no apparent distress HEENT grossly unremarkable CVS -regular rate rhythm Chest -nonlabored respiration Abdomen-soft nontender nondistended Extremities- d Urinary Catheter Management^: Stewart: Cath Placed During This Visit: yes, but has since been removed by the nurse Reason for Continuing Indwelling Catheter: Perioperative Use in Selected Surgeries Urinary Catheter Date of Insertion: 02/23/21 Urinary Catheter Time of Insertion: 15:49 Date Urinary Catheter Removed: 02/25/21 Time Urinary Catheter Discontinued: 06:54 Data : 02/25/21 02:14 02/25/21 02:14 A&P Assessment and plan (1) Fracture of femoral neck, left: Status: Deleted Qualifiers: Encounter type: initial encounter Fracture type: closed Qualified Code(s): S72.002A - Fracture of unspecified part of neck of left femur, initial encounter for closed fracture (2) Fracture of radial neck, left, closed: Status: Acute Qualifiers: Encounter type: initial encounter Fracture alignment: nondisplaced Qualified Code(s): S52.135A - Nondisplaced fracture of neck of left radius, initial encounter for closed fracture Additional A&P Information Mechanical Fall with Left femoral / Radial neck fracture stable post op Large Hiatal Hernia Protonix 40 mg PO daily DVT ppx Per orthopedic surgery Attestations Medical Necessity Statement*: Will require further hospitalization for management of postoperative care. Time Spent in Patient Care: Greater than 35 minutes (>than 50% of time spent in counselling and/or direct pt care on unit). Coding Level of Care Code Acute Roll Off Driver for [facility] Diagnoses Fracture of femoral neck, left S72.002A Encounter type: initial encounter Fracture type: closed Fracture of radial neck, left, closed S52.135A Encounter type: initial encounter Fracture alignment: nondisplaced
[2021-02-26] VITALS (7 sets, daily range): BP systolic 103–120; BP diastolic 60–70; PULSE 90–104; RESP 14–18; TEMP 36.7–37.8; O2SAT 90–98
[2021-02-26 03:04] LABS: Basophils % 0.5 %; Eosinophils # 0.3 10^3/uL (0.0-0.8); Hematocrit 27.7 % (37.0-47.0); Hemoglobin 8.8 g/dL (11.5-15.3); Lymphocytes # 1.3 10^3/uL (0.8-4.8); Lymphocytes % 17.2 %; Mean Corpuscular HGB Conc 31.8 g/dL (30.0-36.0); Mean Corpuscular Hemoglobin 30.6 pg (28.0-34.0); Mean Corpuscular Volume 96.2 fl (81-99); Mean Platelet Volume 10.6 fL (7.4-10.4); Monocytes # 0.6 10^3/uL (0.2-0.9); Monocytes % 7.5 %; Neutrophils # 5.25 10^3/uL (1.8-7.7); Neutrophils % 70.4 %; Nucleated Red Blood Cells % 0 %; Platelet Count 103 10^3/cmm (130-400); Red Blood Count 2.88 10^6/uL (4.1-5.3); Red Cell Distribution Width 13.4 % (12.1-15.1); White Blood Count 7.5 10^3/uL (4.0-10.0)
[2021-02-26] MEDS: sodium chloride 0.9% 1,000 ML 100 ML IV ×3 (03:45→21:20)
[2021-02-26] MEDS: HYDROcodone-acetaminophen 5-325 mg Tablet 1 TAB PO ×4 (04:22→20:14)
--- NOTE | 2021-02-26 08:06 | P.PN_ITS ---
Subjective Subjective: Interval history: no new clinical events overnight Medications: Reviewed: Yes Vitals/I&O/Wt Last Vital Signs Temp 98.8 F 02/27/21 03:51 Pulse 89 02/27/21 03:51 Resp 17 02/27/21 03:51 BP 106/63 02/27/21 03:51 Pulse Ox 94 02/27/21 03:51 02/26/21 02/27/21 02/27/21 22:59 06:59 14:59 Intake Total 1165 / 3478.333 Output Total 300 / 300 Balance 1165 / 3478.333 -300 / 3178.333 Physical Exam Narrative: EXAM NARRATIVE: General-alert awake and oriented x3 no apparent distress HEENT grossly unremarkable CVS -regular rate rhythm Chest -nonlabored respiration Abdomen-soft nontender nondistended Extremities- d Urinary Catheter Management^: Stewart: Cath Placed During This Visit: yes, but has since been removed by the nurse Reason for Continuing Indwelling Catheter: Perioperative Use in Selected Surgeries Urinary Catheter Date of Insertion: 02/23/21 Urinary Catheter Time of Insertion: 15:49 Date Urinary Catheter Removed: 02/25/21 Time Urinary Catheter Discontinued: 06:54 Data : 02/27/21 05:16 02/25/21 02:14 A&P Assessment and plan (1) Fracture of femoral neck, left: Status: Deleted Qualifiers: Encounter type: initial encounter Fracture type: closed Qualified Code(s): S72.002A - Fracture of unspecified part of neck of left femur, initial encounter for closed fracture (2) Fracture of radial neck, left, closed: Status: Acute Qualifiers: Encounter type: initial encounter Fracture alignment: nondisplaced Qualified Code(s): S52.135A - Nondisplaced fracture of neck of left radius, initial encounter for closed fracture Additional A&P Information Mechanical Fall with Left femoral / Radial neck fracture stable post op H&H in a.m. home care arrangements PT consult Large Hiatal Hernia Protonix 40 mg PO daily DVT ppx Per orthopedic surgery Attestations Medical Necessity Statement*: Continuous realization for management of postoperative care Time Spent in Patient Care: Greater than 35 minutes (>than 50% of time spent in counselling and/or direct pt care on unit) . Coding Level of Care Code Acute Data Warehouse Developer for [employer] [facility] Diagnoses Fracture of femoral neck, left S72.002A Encounter type: initial encounter Fracture type: closed Fracture of radial neck, left, closed S52.135A Encounter type: initial encounter Fracture alignment: nondisplaced
[2021-02-26] MEDS: chlorhexidine gluconate 0.12% Btl 473 mL 30 ML MUCOUS MEM ×4 (08:56→20:13)
[2021-02-26] MEDS: sennosides-docusate Tablet 2 TAB PO ×2 (08:56→17:19)
[2021-02-26] MEDS: mupirocin oint 22 gm 1 APPLIC NASAL ×2 (08:56→17:19)
--- NOTE | 2021-02-26 09:07 | PM.PN ---
Subjective Subjective: Interval history: Patient slow to progress with therapy. Refuses to consider detention. Vitals/I&O/Wt Last Vital Signs Temp 98.1 F 02/26/21 07:46 Pulse 90 02/26/21 07:46 Resp 14 02/26/21 07:46 BP 118/66 02/26/21 07:46 Pulse Ox 96 02/26/21 07:46 02/25/21 02/26/21 02/26/21 22:59 06:59 14:59 Intake Total 1240 / 1300 1190 / 2490 1480 / 1480 Balance 1240 / 1300 1190 / 2490 1480 / 1480 Physical Exam Narrative: EXAM NARRATIVE: Left hip dressings clean and dry Urinary Catheter Management^: Stewart: Cath Placed During This Visit: yes, but has since been removed by the nurse Reason for Continuing Indwelling Catheter: Perioperative Use in Selected Surgeries Urinary Catheter Date of Insertion: 02/23/21 Urinary Catheter Time of Insertion: 15:49 Date Urinary Catheter Removed: 02/25/21 Time Urinary Catheter Discontinued: 06:54 Data : 02/26/21 02:10 02/25/21 02:14 A&P Assessment and plan (1) Basicervical fracture of neck of left femur: Status: Acute (2) Fracture of radial neck, left, closed: Status: Acute Qualifiers: Encounter type: initial encounter Fracture alignment: nondisplaced Qualified Code(s): S52.135A - Nondisplaced fracture of neck of left radius, initial encounter for closed fracture (3) Postoperative state: Continue physical therapy. With a left upper and left lower extremity fracture progress will be slow and she is making slow gains. I told her that I really think she needs to consider detention. She refuses alleges that she has made plans to the contrary with her admitting physician. Status: Acute Attestations Medical Necessity Statement*: As per primary care. Okay for discharge per SNF per Ortho. No acute Ortho needs. Coding Level of Care Code Acute Health Insurance Specialist for [facility] Diagnoses Basicervical fracture of neck of left femur S72.042A Fracture of radial neck, left, closed S52.135A Encounter type: initial encounter Fracture alignment: nondisplaced Postoperative state Z98.890
[2021-02-26] MEDS: enoxaparin 40 mg/0.4 mL Syringe SUBCUT (12:05)
--- NOTE | 2021-02-26 12:15 | PC.SOCIAL ---
IM followup reviewed with patient and copy provided. NO questions voiced.
--- NOTE | 2021-02-26 13:53 | PC.NURSE ---
patient working with PT
[2021-02-27] VITALS: BP 114/66; PULSE 99; RESP 18; TEMP 37.6; O2SAT 96
[2021-02-27] MEDS: HYDROcodone-acetaminophen 5-325 mg Tablet 1 TAB PO ×3 (00:14→12:09)
[2021-02-27 03:51] VITALS: BP 106/63; PULSE 89; RESP 17; TEMP 37.1; O2SAT 94
[2021-02-27 05:55] LABS: Basophils % 0.7 %; Eosinophils # 0.3 10^3/uL (0.0-0.8); Eosinophils % 4.6 %; Hemoglobin 7.8 g/dL (11.5-15.3); Lymphocytes # 1.1 10^3/uL (0.8-4.8); Lymphocytes % 18.2 %; Mean Corpuscular HGB Conc 31.2 g/dL (30.0-36.0); Mean Corpuscular Hemoglobin 30.2 pg (28.0-34.0); Mean Corpuscular Volume 96.9 fl (81-99); Monocytes # 0.6 10^3/uL (0.2-0.9); Monocytes % 10.4 %; Neutrophils # 3.85 10^3/uL (1.8-7.7); Neutrophils % 65.6 %; Nucleated Red Blood Cells % 0 %; Platelet Count 115 10^3/cmm (130-400); Red Blood Count 2.58 10^6/uL (4.1-5.3); Red Cell Distribution Width 13.5 % (12.1-15.1); White Blood Count 5.9 10^3/uL (4.0-10.0)
[2021-02-27 08:00] VITALS: BP 135/66; PULSE 100; RESP 20; TEMP 37.1; O2SAT 97
[2021-02-27] MEDS: sennosides-docusate Tablet 2 TAB PO (08:07)
[2021-02-27] MEDS: mupirocin oint 22 gm 1 APPLIC NASAL (09:11)
[2021-02-27] MEDS: chlorhexidine gluconate 0.12% Btl 473 mL 30 ML MUCOUS MEM (09:11)
[2021-02-27] MEDS: sodium chloride 0.9% 1,000 ML 100 ML IV (09:20)
[2021-02-27] MEDS: enoxaparin 40 mg/0.4 mL Syringe SUBCUT (10:06)
[2021-02-27 11:21] VITALS: BP 115/62; PULSE 89; RESP 18; TEMP 37; O2SAT 96
--- NOTE | 2021-02-27 13:58 | PM.DCS ---
Discharge Providers Date of Admission: 02/23/21 16:27 Date of Discharge: February 27, 2021 Attending Provider at Admission: Manny Harrell Attending Provider at Discharge: Manny Harrell Diagnoses at Discharge Discharge Diagnosis (1) Fracture of femoral neck, left: Status: Deleted Qualifiers: Encounter type: initial encounter Fracture type: closed Qualified Code(s): S72.002A - Fracture of unspecified part of neck of left femur, initial encounter for closed fracture (2) Fracture of radial neck, left, closed: Status: Acute Qualifiers: Encounter type: initial encounter Fracture alignment: nondisplaced Qualified Code(s): S52.135A - Nondisplaced fracture of neck of left radius, initial encounter for closed fracture Reason for Visit Reason for Visit: LEFT HIP PAIN S/P FALL Hospital Course Hospital Course 71-year-old female with no significant past medical history presented to the hospital after she fell. Apparently patient had tripped over a rug. No symptoms prior to fall.Upon arrival to emergency room patients laboratory workup showed a WBC of 7.6, hemoglobin of 13.9, hematocrit 42.3 and platelet count of 239. INR of 0.93. Sodium 137, potassium 3.8, chloride 102, bicarb 22, BUN 17 and creatinine of 0.7. LFTs were within normal limits. Glucose 117. Urinalysis did not show any evidence of acute infection.Imaging studies included a large hiatal hernia with left basilar atelectasis.Hip x-ray showed evidence of left basicervical neck fracture. LT forearm xray showed left radial neck fracture. Orthopedic surgery was consulted. Medicine was asked to complete H&P. Upon admission patient was seen by orthopedic surgery and taken open reduction internal fixation of left hip with intramedullary device. Postoperative was complicated with anemia with a hemoglobin the decreased to 7.8. Did not have any bleeding episodes. was noted to have isolated fever episode immediately postop however no obvious infectious processes noted. Patient was treated with preoperative antibiotics. No further antibiotics were continued at discharge. Was cleared for discharge. Physical Exam Narrative: EXAM NARRATIVE: General-alert awake and oriented x3 no apparent distress HEENT grossly unremarkable CVS -regular rate rhythm Chest -nonlabored respiration Abdomen-soft nontender nondistended Extremities-Postop Urinary Catheter Management^: Stewart: Cath Placed During This Visit: yes, but has since been removed by the nurse Reason for Continuing Indwelling Catheter: Perioperative Use in Selected Surgeries Urinary Catheter Date of Insertion: 02/23/21 Urinary Catheter Time of Insertion: 15:49 Date Urinary Catheter Removed: 02/25/21 Time Urinary Catheter Discontinued: 06:54 Discharge Data Data Completed and Pending: Completed Studies During Hospitalization Category Date Time Status XR chest 1V sweta ble 64069 Stat Exams 02/23/21 14:43 Completed XR forearm LT 2V [id number] Stat Exams 02/23/21 15:22 Completed XR hip LT 1V wo/w pel [id number] Routine Exams 02/24/21 Completed XR hip LT 2-3V wo /w pel* [id number] Stat Exams 02/23/21 14:43 Completed Labs from last 24 hours 02/27/21 05:16 WBC 5.9 RBC 2.58 L Hgb 7.8 L Hct 25.0 L MCV 96.9 MCH 30.2 MCHC 31.2 RDW 13.5 Plt Count 115 L MPV 11.0 H Neut % (Auto) 65.6 Lymph % (Auto) 18.2 [place] % (Auto) 10.4 Eos % (Auto) 4.6 Baso % (Auto) 0.7 Neut # (Auto) 3.85 Lymph # (Auto) 1.1 [place] # (Auto) 0.6 Eos # (Auto) 0.3 Baso # (Auto) 0.0 Nucleated RBC % (a uto) 0 Nucleated RBCs # 0.0 Vitals: Last Vital Signs Temp 98.6 F 02/27/21 11:21 Pulse 89 02/27/21 11:21 Resp 18 02/27/21 11:21 BP 115/62 02/27/21 11:21 Pulse Ox 96 02/27/21 11:21 Discharge Plan Discharge Patient Disposition: Home Condition: Stable Prescriptions: New hydrocodone-acetaminophen 5-325 mg Tablet 1 tab PO Q4H PRN (Reason: Moderate Pain) Qty: 10 RF: 0 enoxaparin 40 mg/0.4 mL Syringe 40 mg SUBCUT Q24H 10 Days Qty: 4 RF: 0 Continued lactase 125 mg Capsule 4,500 unit PO TIDWM RF: 0 [id number] Tablet 150 unit PO TIDWM RF: 0 aspirin 81 mg Tablet,Chewable 81 mg PO DAILY RF: 0 calcium 100 mg Capsule 100 mg PO DAILY RF: 0 cyanocobalamin (vitamin B-12) 25 mcg Tablet 1,000 mcg PO DAILY RF: 0 Vitamin D3 25 mcg (1,000 unit) Capsule 25 mcg PO DAILY RF: 0 flaxseed 1,000 mg Capsule 1,000 mg PO DAILY RF: 0 Discharge Orders: Discharge Order (Routine); Ordered 02/27/21 Ordered By: Manny Harrell Other Ambulatory Orders: DME: Commode (Order) Location: None Selected Ordered By: Manny Harrell DME: Shower Chair (Order) Location: None Selected Ordered By: Manny Harrell DME: Walker (Order) Location: None Selected Ordered By: Manny Harrell DME: Walker (Order) Location: None Selected Ordered By: Manny Harrell Referrals: [facility] [Other] ([facility] has accepted you for -Please call them if you have questions. ) Pancho Reyes MD [Physician] - 03/26/21 10:00 am Discharge Diet: Usual diet Discharge Activity: Increase activity as tolerated Patient Instructions: Hydrocodone/Acetaminophen (By mouth), Enoxaparin (Injection), Opioid Safety Activity Restrictions/Additional Instructions: Return to hospital if any recurrence of fever, uncontrolled pain or new symptoms. Discharge Attestations Time Spent in Discharge Care*: greater than 30 min Specific Discharge Activities: educating patient, educating and/or supporting family/caregiver, discussing with pcp/other providers, discussing with leather case finisher/social workers/dc planners, documenting/other paperwork and evaluating patient/reviewing data Status at Discharge: Cognitive status at discharge: cognitively intact, Behavioral status at discharge: cooperative, Functional status at discharge: other assisted ambulation Overall status at discharge: patient is progressing back to baseline Quality Metrics Clinical Quality Measures During this hospital stay, did patient experience: None Coding Level of Care Code Acute [facility] DC note Diagnoses Fracture of femoral neck, left S72.002A Encounter type: initial encounter Fracture type: closed Fracture of radial neck, left, closed S52.135A Encounter type: initial encounter Fracture alignment: nondisplaced
[2021-02-27 14:12] VITALS: BP 115/62; PULSE 89; RESP 18; TEMP 37; O2SAT 96
== END 2021-02-27 14:50 | disposition home health service (06) | DRG 482 ==
LOC: ER 17:07 → MEDSURG 17:22
PROVIDERS: Nurse Practitioner Family; Orthopaedic Surgery; Admitting Provider Hospitalist; Emergency Provider Family Medicine; Visit Provider Hospitalist
PROC: (CPT 27245; principal; 2021-02-24 06:55)
DX: S72.002A Fracture of unspecified part of neck of left femur, initial encounter for closed fracture (principal); S52.132A Displaced fracture of neck of left radius, initial encounter for closed fracture; W01.0XXA Fall on same level from slipping, tripping and stumbling without subsequent striking against object, initial encounter; Y93.01 Activity, walking, marching and hiking; Y92.009 Unspecified place in unspecified non-institutional (private) residence as the place of occurrence of the external cause; K44.9 Diaphragmatic hernia without obstruction or gangrene; D64.9 Anemia, unspecified; Z79.82 Long term (current) use of aspirin
CPT/HCPCS: 36415; 51702; 71045; 73090; 73501; 73502; 76000; 80048; 80053; 81003; 85025; 85610; 93005; 96361; 96372; 96374; 96375; 97110; 97116; 97162; 97165; 97530; 97535; 99285; C1713; J0690; J1650; J2175; J2270; J2405; J2704; J7030; J7040

== ENCOUNTER → 2021-03-26 10:03 | Outpatient (BNVA) | payer MEDICARE, SELFPAY | PROVIDERS: Visit Provider Orthopaedic Surgery | DX: S72.042A Displaced fracture of base of neck of left femur, initial encounter for closed fracture (principal); S52.135A Nondisplaced fracture of neck of left radius, initial encounter for closed fracture; X58.XXXA Exposure to other specified factors, initial encounter | CPT/HCPCS: 73080; 73502 ==

== ENCOUNTER → 2021-05-07 13:25 | Outpatient (BNVA) | payer MEDICARE, SELFPAY | PROVIDERS: Visit Provider Orthopaedic Surgery | DX: S72.042A Displaced fracture of base of neck of left femur, initial encounter for closed fracture (principal); X58.XXXA Exposure to other specified factors, initial encounter | CPT/HCPCS: 73502 ==

== ENCOUNTER → 2021-06-12 13:39 | Outpatient (BNVA) | payer MEDICARE, SELFPAY | PROVIDERS: Visit Provider Orthopaedic Surgery | DX: Z98.890 Other specified postprocedural states (principal); S72.042D Displaced fracture of base of neck of left femur, subsequent encounter for closed fracture with routine healing; X58.XXXD Exposure to other specified factors, subsequent encounter | CPT/HCPCS: 73502 ==

== ENCOUNTER → 2021-07-23 13:19 | Outpatient (BNVA) | payer MEDICARE, SELFPAY | PROVIDERS: Visit Provider Orthopaedic Surgery | DX: S72.042A Displaced fracture of base of neck of left femur, initial encounter for closed fracture (principal); X58.XXXA Exposure to other specified factors, initial encounter | CPT/HCPCS: 73502 ==